=== PATIENT | female | born 1955 | race Two or more races ===

== ENCOUNTER 2025-04-14 14:20 | Outpatient (CLI) | payer OTHER, MEDICAID ==
[2025-04-14] MEDS ORDERED: ALBUTEROL SULF 2.5 MG/0.5ML(0.5%) NEB SOLN ONE (14:50)
== END 2025-04-14 17:00 | disposition home or self-care (01) ==
LOC: RT 14:20
PROVIDERS: ATTEND Internal Medicine Pulmonary Disease
DX: J45.909 Unspecified asthma, uncomplicated (principal); R05.3 Chronic cough; Z87.891 Personal history of nicotine dependence
CPT/HCPCS: 94060; 94618; 94729